=== PATIENT | female | born 1955 | race Caucasian/White ===

== ENCOUNTER → 2021-06-03 | Outpatient (CLI) | payer OTHER ==
[2021-06-03 20:15] LABS: Free Thyroxine 1.09 ng/dL (0.70-1.60); Thyroid Stimulating Hormone 0.063 uIU/mL (0.360-4.800)
== END | disposition home or self-care (01) ==
LOC: LAB SHORT 18:02 → LAB 18:02
PROVIDERS: Hospitalist
DX: E03.9 Hypothyroidism, unspecified (principal)
CPT/HCPCS: 84439; 84443

== ENCOUNTER → 2021-07-08 | Outpatient (CLI) | payer OTHER | END | disposition home or self-care (01) | LOC: LAB 07:34 → LAB SHORT 07:34 | DX: L82.0 Inflamed seborrheic keratosis (principal) | CPT/HCPCS: 88305 ==

== ENCOUNTER → 2022-06-29 | Outpatient (CLI) | payer OTHER ==
[2022-06-29 15:53] LABS: Free Thyroxine 1.22 ng/dL (0.70-1.60)
[2022-06-29 15:57] LABS: Thyroid Stimulating Hormone 0.053 uIU/mL (0.360-4.800); Triiodothyronine, Free 2.68 pg/mL (2.18-3.98)
== END | disposition home or self-care (01) ==
LOC: LAB SHORT 09:40
PROVIDERS: Hospitalist
DX: E03.9 Hypothyroidism, unspecified (principal)
CPT/HCPCS: 84439; 84443; 84481

== ENCOUNTER → 2023-12-01 | Outpatient (CLI) | payer MEDICARE ==
[2023-12-01 14:42] LABS: Free Thyroxine 1.1 ng/dL (0.70-1.60); Thyroid Stimulating Hormone 0.212 uIU/mL (0.360-4.800)
== END ==
LOC: LAB 13:24 → LAB SHORT 13:24
PROVIDERS: Hospitalist
DX: E03.9 Hypothyroidism, unspecified (principal)
CPT/HCPCS: 84439; 84443

== ENCOUNTER → 2025-03-19 | Outpatient (CLI) | payer MEDICARE, BC | LOC: LAB 18:11 → LAB SHORT 18:11 | DX: E03.9 Hypothyroidism, unspecified (principal) ==

== ENCOUNTER → 2025-07-02 | Outpatient (CLI) | payer MEDICARE, BC ==
[~2025-07-02] MED LIST: CALCIUM CARBON500 M1; CHLO4; CIME400; CLIMARA1 EACH; EUTHYROX175 MCG; GABA100; MELATONIN5 M1; TERB250 TOP; Triamcinolone A15 GM; VOLTAREN ARTHRI20 GM
== END | disposition home or self-care (01) ==
LOC: LAB SHORT 13:47 → LAB 13:47
DX: L28.0 Lichen simplex chronicus (principal); D48.9 Neoplasm of uncertain behavior, unspecified
CPT/HCPCS: 88305